=== PATIENT | female | born 1950 | race Caucasian/White ===

== ENCOUNTER → 2019-11-28 13:57 | Outpatient (CLI) | payer MEDICARE, SELFPAY ==
--- NOTE | ~2019-11-28 | MM_ITS ---
EXAMINATION: MM screening [facility] BI w rayna HISTORY: Screening mammogram TECHNIQUE: Craniocaudal and mediolateral oblique 3-D tomosynthesis images were obtained and synthetic 2-D images were generated. CAD analysis was submitted and interpreted. COMPARISON: Comparison to multiple prior studies sequentially, with oldest reviewed study dated 10/30. BREAST PARENCHYMAL COMPOSITION: There are scattered areas of fibroglandular density. FINDINGS: There is no evidence of suspicious mass, calcification, or architectural distortion to sugg est malignancy in either breast. There has been no suspicious interval change. IMPRESSION: 1. No mammographic evidence of malignancy. 2. Recommend routine screening mammography in one year. BI-RADS Category 1: Negative Reviewed, dictated and finalized at location A. [employer]
== END ==
PROVIDERS: Visit Provider Nurse Practitioner
DX: Z12.31 Encounter for screening mammogram for malignant neoplasm of breast (principal)
CPT/HCPCS: 77063; 77067

== ENCOUNTER → 2021-01-29 11:18 | Outpatient (CLI) | payer MEDICARE, SELFPAY ==
--- NOTE | ~2021-01-29 | MM_ITS ---
EXAMINATION: MM screening [facility] BI w rayna HISTORY: Screening mammogram TECHNIQUE: Craniocaudal and mediolateral oblique 3-D tomosynthesis images were obtained and synthetic 2-D images were generated. CAD analysis was submitted and interpreted. COMPARISON: No prior mammogram is available for comparison at this institution. BREAST PARENCHYMAL COMPOSITION: There are scattered areas of fibroglandular density. FINDINGS: Stable fibroglandular asymmetry and occasional bilateral benign calcifications. There is no evidence of suspicious mass, calcification, or architectural distortion to suggest malignancy in eit her breast. There has been no suspicious interval change. IMPRESSION: 1. No mammographic evidence of malignancy. 2. Recommend routine screening mammography in one year. BI-RADS Category 2: Benign finding(s). Reviewed, dictated and finalized at location A.
== END ==
PROVIDERS: PCP Family Medicine; Visit Provider Nurse Practitioner
DX: Z12.31 Encounter for screening mammogram for malignant neoplasm of breast (principal)
CPT/HCPCS: 77063; 77067

== ENCOUNTER → 2022-01-01 14:32 | Outpatient (CLI) | payer MEDICARE, SELFPAY ==
--- NOTE | ~2022-01-01 | XR_ITS ---
XR finger 2nd LT min 2V DATE: 01/01/2022 14:46 INDICATION: Left second digit pain TECHNIQUE: 4 views COMPARISON: None FINDINGS: No fracture or dislocation, periosteal reaction or bone destruction. IMPRESSION: Negative Reviewed, dictated and finalized at location A. IMPRESSION: Negative
== END ==
PROVIDERS: PCP Family Medicine; Visit Provider Family Medicine
DX: M79.645 Pain in left finger(s) (principal)
CPT/HCPCS: 73140

== ENCOUNTER → 2022-02-17 09:09 | Outpatient (CLI) | payer MEDICARE, SELFPAY ==
--- NOTE | ~2022-02-17 | MM_ITS ---
EXAMINATION: MM screening [facility] BI w rayna HISTORY: Screening mammogram TECHNIQUE: Craniocaudal and mediolateral oblique 3-D tomosynthesis images were obtained and synthetic 2-D images were generated. CAD analysis was submitted and interpreted. COMPARISON: 01/29/2021, 11/28/2019 BREAST PARENCHYMAL COMPOSITION: There are scattered areas of fibroglandular density. FINDINGS: RIGHT BREAST: There is no suspicious mass, calcification, or architectural distortion to suggest alea gnancy. There has been no significant interval change. LEFT BREAST: There is possible architectural distortion in the middle third of the outer breast. IMPRESSION: 1. Possible left breast architectural distortion. 2. Additional mammographic views and possible breast ultrasound are recommended. BI-RADS Category 0: Incomplete: Needs additional imaging evaluation. Reviewed, dictated and finalized at location A. IMPRESSION: 1. Possible left breast architectural distortion. 2. Additional mammographic views and possible breast ultrasound are recommended . BI-RADS Category 0: Incomplete: Needs additional imaging evaluation.
--- NOTE | ~2022-02-17 | DEXA_ITS ---
Bone Density Report Name: BRYN RIVERA Age: 71 Sex: Female Ethnicity: White Date of : 1950 Indication: postmenopausal; screening for osteoporosis; Referring Provider: LACIE, KENDRICK Study: Bone densitometry was performed. Exam Date: February 17, 2022 Accession number: [id number] Bone Density: Region BMD T-score Z-score Classification AP Spine (L1, L2, L3) 0.989 -0.3 1.9 Normal Femoral Neck (Left) 0.807 -0.4 1.5 Normal Total Hip (Left) 0.892 -0.4 1.2 Normal Femoral Neck (Right) 0.793 -0.5 1.4 Normal Total Hip (Right) 0.864 -0.6 1.0 Normal Total Hip Mean 0.878 -0.5 1.1 Normal World Health Organization criteria for BMD impression classify patients as: Normal (T-score at or above -1.0), Osteopenia (T-score between -1.0 and -2.5), or Osteoporosis (T-score at or below -2.5). 10-year Fracture Risk: FRAX not reported because: All T-scores for Spine Total, Hip Total, Femoral Neck at or above -1.0 Previous Exams: Region Exam Age BMD T-score BMD Change BMD Change Date g/cm2 vs Baseline vs Previous AP Spine(L1, L2, L3) 02/17/2022 71 0.989 -0.3 0.054* -0.040* 11/15/2018 67 1.029 0.1 0.094* 0.011 10/30/2015 64 1.018 0.0 0.083* 0.033* 08/19/2011 60 0.985 -0.3 0.050* -0.006 08/17/2009 58 0.991 -0.2 0.057* 0.057* 12/27/2004 54 0.934 -0.8 Total Hip(Left) 02/17/2022 71 0.892 -0.4 -0.161* 0.013 11/15/2018 67 0.879 -0.5 -0.174* -0.045* 10/30/2015 64 0.924 -0.1 -0.129* 0.003 08/19/2011 60 0.922 -0.2 -0.131* -0.011 08/17/2009 58 0.933 -0.1 -0.120* -0.120* 12/27/2004 54 1.053 0.9 Total Hip(Right) 02/17/2022 71 0.864 -0.6 -0.082* -0.010 11/15/2018 67 0.874 -0.6 -0.072* -0.062* 10/30/2015 64 0.936 0.0 -0.010 -0.008 08/19/2011 60 0.944 0.0 -0.002 0.030* 08/17/2009 58 0.914 -0.2 -0.032* -0.032* 12/27/2004 54 0.946 0.0 *Denotes significance at 95% confidence level, LSC for AP Spine = 0.022 g/cm2, LSC for Total Hip = 0.027 g/cm2 Clinical Information Provided by Patient: Patient maximum height was 61 Menopause Age: 53 Drinks caffeinated beverages Onset of menses at age 11 Number of children 1 Imp
== END ==
PROVIDERS: PCP Family Medicine; Visit Provider Nurse Practitioner
DX: Z12.31 Encounter for screening mammogram for malignant neoplasm of breast (principal); Z78.0 Asymptomatic menopausal state; R92.8 Other abnormal and inconclusive findings on diagnostic imaging of breast
CPT/HCPCS: 77063; 77067; 77080

== ENCOUNTER → 2022-03-04 08:46 | Outpatient (CLI) | payer MEDICARE, SELFPAY ==
--- NOTE | ~2022-03-04 | MMUS_ITS ---
EXAMINATION: MM diagnostic shankar LT w rayna, US breast LT complete HISTORY: Possible left breast architectural distortion, middle third of outer breast, reported on 02/02 screening mammogram examinations are TECHNIQUE: Additional 3-D tomosynthesis images of left breast were performed and synthetic 2-D images were generated. CAD analysis was submitted and interpreted. High resolution complete left breast ult rasound including all 4 quadrants and subareolar area was performed. COMPARISON: 02/17/2022, 01/29/2021, 11/24/2019 bilateral screening mammogram examinations FINDINGS: MAMMOGRAPHIC FINDINGS: No suspicious mass, architectural distortion, malignant calcification, skin thickening or retraction is evident. ULTRASOUND: No suspicious mass or shadowing, cyst or other significant sonographic abnormality of left breast is detected. IMPRESSION: 1. No mammographic evidence of malignancy 2. Routine annual mammographic screening is recommended. BI-RADS Category 1: Negative Reviewed, dictated and finalized at location A. IMPRESSION: 1. No mammographic evidence of malignancy 2. Routine annual mammographic screening is recommended. BI-RADS Category 1: Negative
== END ==
PROVIDERS: PCP Family Medicine; Visit Provider Obstetrics & Gynecology Gynecology
DX: R92.8 Other abnormal and inconclusive findings on diagnostic imaging of breast (principal)
CPT/HCPCS: 76641; 77061; 77065; G0279

== ENCOUNTER → 2023-03-09 10:20 | Outpatient (CLI) | payer MEDICARE, SELFPAY ==
--- NOTE | ~2023-03-09 | MM_ITS ---
EXAMINATION: MM screening [facility] BI w rayna HISTORY: Screening TECHNIQUE: Craniocaudal and mediolateral oblique 3-D tomosynthesis images were obtained and synthetic 2-D images were generated. CAD analysis was submitted and interpreted. COMPARISON: Comparison to multiple prior studies sequentially, with oldest reviewed study dated 03/2018. BREAST PARENCHYMAL COMPOSITION: Breast composed of scattered areas of fibroglandular density FINDINGS: There is no evidence of suspicious mass, calcification, or architectural distortion to sugg est malignancy in either breast. There has been no suspicious interval change. IMPRESSION: 1. No mammographic evidence of malignancy. 2. Recommend routine screening mammography in one year. BI-RADS Category 1: Negative Reviewed, dictated and finalized at location A.
== END ==
PROVIDERS: PCP Family Medicine; Visit Provider Nurse Practitioner
DX: Z12.31 Encounter for screening mammogram for malignant neoplasm of breast (principal)
CPT/HCPCS: 77063; 77067

== ENCOUNTER 2024-05-02 05:52 | Day surgery (SDC) | payer MEDICARE, SELFPAY ==
[2024-03-04 08:39] VITALS: BMI 23.6
[2024-04-18 13:10] VITALS: BMI 22.4
--- NOTE | 2024-04-30 12:52 | PM.HPGS ---
History of Present Illness History of Present Illness Consent: Risks, benefits, and alternatives have been discussed and questions answered. Patient agrees to proceed with procedure. Chief complaint: Family HX Malignant Neoplasm of Digestive Organs Narrative: Urszula Villalta is a 73 year old female who is referred for colon cancer screening. Her father had colon cancer Review of Systems Review of Systems: All systems reviewed & are unremarkable except as noted in HPI and below PMFSH Past Medical History Medical History Controlled diabetes mellitus HLD (hyperlipidemia) Family History Family History Mother Diabetes mellitus Family history of cardiovascular disease Father Hypertension Carcinoma of colon Social History Social History Smoking status: Never smoker Second hand tobacco smoke exposure: No Alcohol intake: never Substance use: never Substance use type: does not use Living arrangements: with family Occupation/Education: retired Gender identity (if verbalized by the patient): Female Sexual Orientation (if Verbalized by the Patient): Straight or Heterosexual Meds Home Medications and Allergies Home Medications Medication Instructions Recorded Confirmed Type atorvastatin 10 mg tablet 10 mg PO QHS 02/12/21 05/02/24 History wkuuqmve-xxfelzw-ofxt-lutein 1 tablet PO DAILY 02/12/21 05/02/24 History tablet (Theratrum Complete with Lutein tablet) metformin 500 mg tablet,extended 500 mg PO TID 08/20/21 05/02/24 History release 24 hr empagliflozin 25 mg tablet 25 mg PO DAILY 09/02/23 05/02/24 History (Jardiance) bisoprolol 5 1 tablet PO DAILY #90 tabs 10/12/23 05/02/24 Rx mg-hydrochlorothiazide 6.25 mg tablet semaglutide 0.25 mg or 0.5 mg (2 1 mg subcut WEEKLY 03/01/24 05/02/24 History mg/3 mL) subcutaneous pen injector (Ozempic) Allergies Allergy/AdvReac Type Severity Reaction Status Date / Time Penicillins Allergy Unknown Unknown Verified 05/02/24 06:11 Exam Const: General: alert Orientation/consciousness: patient oriented x3 Resp: Auscultation: clear to auscultation bilaterally Cardio: Rhythm: regular rhythm GI: GI Palp: Yes Soft to palpation and No Tenderness to palpation present (GI) Neuro: General: patient oriented x3 Assessment and Plan Assessment and plan (1) Family history of colon cancer: Code(s): Z80.0 - Family history of malignant neoplasm of digestive organs Status: Acute Assessment and Plan: Colonoscopy with possible biopsy or polypectomy or cautery or injection of substances.
[2024-05-02 06:21] VITALS: BMI 22.5
[2024-05-02 06:23] VITALS: BP 129/63; PULSE 72; RESP 16; TEMP 37.2; O2SAT 100
[2024-05-02 06:37] LABS: Glucose Point of Care 85 mg/dl (65-105)
--- NOTE | 2024-05-02 07:09 | WPDANESEPPF ---
Anes - Initial Pre Proc Eval Procedure: Operation Date: 05/02/24 07:30 Proposed Procedures p Diagnostic Colonoscopy - Joao Hayes MD Date/Time: 05/02/24 07:09 Surgeon: Joao Hayes MD Pre Op Diagnosis: Family HX Malignant Neoplasm of Digestive Organs Patient Data Age: 73 Gender: F Height: 1.52 m Weight: 52.4 kg Last Vital Signs Temp 37.2 C 05/02/24 06:23 Pulse 72 05/02/24 06:23 Resp 16 05/02/24 06:23 BP 129/63 05/02/24 06:23 Pulse Ox 100 05/02/24 06:23 O2 Del Method Room Air 05/02/24 06:23 Allergies Allergy/AdvReac Type Severity Reaction Status Date / Time Penicillins Allergy Unknown Unknown Verified 05/02/24 06:11 Home Medications Medication Instructions Recorded Confirmed Type atorvastatin 10 mg tablet 10 mg PO QHS 02/12/21 05/02/24 History khptcujj-gclhpmt-apyg-lutein 1 tablet PO DAILY 02/12/21 05/02/24 History tablet (Theratrum Complete with Lutein tablet) metformin 500 mg tablet,extended 500 mg PO TID 08/20/21 05/02/24 History release 24 hr empagliflozin 25 mg tablet 25 mg PO DAILY 09/02/23 05/02/24 History (Jardiance) bisoprolol 5 1 tablet PO DAILY #90 tabs 10/12/23 05/02/24 Rx mg-hydrochlorothiazide 6.25 mg tablet semaglutide 0.25 mg or 0.5 mg (2 1 mg subcut WEEKLY 03/01/24 05/02/24 History mg/3 mL) subcutaneous pen injector (Ozempic) Laboratory Tests 05/02/24 06:31 POC Capillary Glucose 85 mg/dl (65-105) Patient hx anesthesia problems: none Family hx anesthesia problems: none Results Review: All pre-operative results and documents have been reviewed as part of the pre-operative evaluation. [facility] Past Medical History Medical History Controlled diabetes mellitus HLD (hyperlipidemia) Surgical History Surgical History (Updated 05/02/24 @ 07:11 by Kane Alvarez MD) H/O colonoscopy Family History Family History Mother Diabetes mellitus Family history of cardiovascular disease Father Hypertension Carcinoma of colon Social History Social History Smoking status: Never smoker Second hand tobacco smoke exposure: No Alcohol intake: never Substance use: never Substance use type: does not use Living arrangements: with family Occupation/Education: retired Gender identity (if verbalized by the patient): Female Sexual Orientation (if Verbalized by the Patient): Straight or Heterosexual Anes - Eval Final PreProcedure Day of Procedure 05/02/24 07:09 Patient weight: normal Heart: regular rate and rhythm Lungs: clear to auscultation Airway: Mallampati scale class II Neurological: alert and oriented Last oral intake: >/= 8 hours ASA classification: II Emergent: no Anesthetic plan: proceed Anesthesia type and monitoring: general GIVS and standard monitoring Results Review: All pre-operative results and documents have been reviewed as part of the pre-operative evaluation. Informed Consent: The patient's anesthetic plan and its attendant risks and benefits were discussed with the patient/family/POA. Questions were solicited and answers provided to the satisfaction of the patient/family/POA.
[2024-05-02] MEDS: LACTATED RINGERS 1,000 ML 30 ML IV CONT (07:14)
[2024-05-02 07:35] VITALS: BP 100/50; PULSE 77; RESP 15; O2SAT 98
[2024-05-02 07:45] VITALS: BP 92/41; PULSE 72; RESP 15; O2SAT 100
[2024-05-02 07:55] VITALS: BP 104/57; PULSE 72; RESP 15; O2SAT 100
--- NOTE | 2024-05-02 07:59 | WPDANESPN ---
Anes - Prog Note Post-Op Date/Time: 05/02/24 07:59 Cardiovascular status: normal Respiratory status: normal Airway patency: baseline Mental status: baseline Post-Op hydration status: normal Vital Signs: Last Vital Signs Temp 37.2 C 05/02/24 06:23 Pulse 72 05/02/24 07:45 Resp 15 05/02/24 07:45 BP 92/41 L 05/02/24 07:45 Pulse Ox 100 05/02/24 07:45 O2 Del Method Room Air 05/02/24 07:45 Pain Score (VAS): 0/10 I/O: Intake & Output 05/01/24 05/01/24 05/02/24 15:59 23:59 07:59 Intake Total 200 Balance 200 05/02/24 06:31 POC Capillary Glucose 85 Patient Feedback: Patient satisfied with anesthetic care.
== END 2024-05-02 08:11 | disposition home or self-care (01) ==
PROVIDERS: PCP Family Medicine; Visit Provider Internal Medicine Gastroenterology
PROC: 0DJD8ZZ Inspection of Lower Intestinal Tract, Via Natural or Artificial Opening Endoscopic (ICD-10-PCS; CPT 45378; principal; 2024-05-02 07:30)
DX: Z80.0 Family history of malignant neoplasm of digestive organs (principal); Z12.11 Encounter for screening for malignant neoplasm of colon; K57.30 Diverticulosis of large intestine without perforation or abscess without bleeding
CPT/HCPCS: 45378

== ENCOUNTER 2024-05-30 13:43 | Outpatient (CLI) | payer MEDICARE, SELFPAY ==
--- NOTE | ~2024-05-30 | MM_ITS ---
EXAMINATION: MM screening [facility] BI w rayna HISTORY: Screening TECHNIQUE: Craniocaudal and mediolateral oblique 3-D tomosynthesis images were obtained and synthetic 2-D images were generated. CAD analysis was submitted and interpreted. COMPARISON: Comparison to multiple prior studies sequentially, with oldest reviewed study dated 11/15. BREAST PARENCHYMAL COMPOSITION: Not dense: There are scattered areas of fibroglandular density. FINDINGS: There is no evidence of suspicious mass, calcification, or architectural distortion to sugg est malignancy in either breast. There has been no suspicious interval change. IMPRESSION: 1. No mammographic evidence of malignancy. 2. Recommend routine screening mammography in one year. BI-RADS Category 1: Negative Reviewed, dictated and finalized at location B.
== END 2024-05-30 13:44 ==
LOC: MICIMG 13:44
PROVIDERS: PCP Family Medicine; Visit Provider Nurse Practitioner
DX: Z12.31 Encounter for screening mammogram for malignant neoplasm of breast (principal)
CPT/HCPCS: 77063; 77067

== ENCOUNTER 2025-07-06 09:08 | Outpatient (CLI) | payer MEDICARE, SELFPAY ==
--- NOTE | ~2025-07-06 | MM_ITS ---
EXAMINATION: MM screening [facility] BI w rayna HISTORY: Screening TECHNIQUE: Craniocaudal and mediolateral oblique 3-D tomosynthesis images were obtained and synthetic 2-D images were generated. CAD analysis was submitted and interpreted. COMPARISON: Comparison to multiple prior studies sequentially, with oldest reviewed study dated 11/28/2019. BREAST PARENCHYMAL COMPOSITION: Not dense: There are scattered areas of fibroglandular density. FINDINGS: There is no evidence of suspicious mass, calcification, or architectural distortion to suggest malignancy in either breast. There has been no suspicious interval change. IMPRESSION: 1. No mammographic evidence of malignancy. 2. Recommend routine screening mammography in one year. BI-RADS Category 1: Negative Reviewed, dictated and finalized at location C.
== END 2025-07-06 09:09 | disposition home or self-care (01) ==
LOC: MICIMG 09:09
PROVIDERS: PCP Family Medicine; Visit Provider Obstetrics & Gynecology Gynecology
DX: Z12.31 Encounter for screening mammogram for malignant neoplasm of breast (principal)
CPT/HCPCS: 77063; 77067